=== PATIENT | male | born 1975 | race American Indian/Alaskan Native ===

== ENCOUNTER 2021-05-22 17:33 | Emergency (ER) | payer OTHER ==
[2021-05-22] MEDS ORDERED: methylPREDNISolone Sod Succinate 125 MG/2 ML INJ IV ONE (17:41)
[2021-05-22] MEDS ORDERED: diphenhydrAMINE 50 MG/ML VIAL IV ONE (17:42)
[2021-05-22] MEDS ORDERED: FAMOTIDINE 20 MG/2 ML INJ IV ONE (17:43)
[2021-05-22] MEDS ORDERED: methylPREDNISolone Sod Succinate 125 MG/2 ML INJ ONE (17:49)
--- NOTE | 2021-05-22 19:13 | Emergency Department Report ---
HPI - General Chief Complaint: Allergic Reaction PUI?: No Time Seen by Provider: 05/22/21 19:07 - [facility] HPI: 45-year-old male presents to the ED complaining of an allergic reaction at the touching face after eating seafood. 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 Patient states he is able to eat seafood without having any reaction. He stated that he had eaten the seafood x3 starting yesterday but once a day after eating he touched his face and noticed his eyes began to swell. He states this is his third reaction in the last 7-month. Patient has an EpiPen that he has not picked up from the pharmacy. He has edema noted to the face and ear area. No acute distress noted. Patient is alert and oriented x4. ED Past Medical Hx - Medications Home Medications: Home Medications Medication Instructions Recorded Confirmed Last Taken Type diphenhydrAMINE [Benadryl CAP] 50 mg PO Q8HR PRN 15 Days #30 05/22/21 Unknown Rx capsule predniSONE [Deltasone] 50 mg PO QDAY 3 Days #3 tab 05/22/21 Unknown Rx ED Review of Systems ROS: Stated complaint: ALLERGIC RXN Other details as noted in HPI ED Medical Decision Making - Medical Decision Making 45-year-old male presents to the ED complaining of an allergic reaction at the touching face after eating seafood. 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 Patient states he is able to eat seafood without having any reaction. He stated that he had eaten the seafood x3 starting yesterday but once a day after eating he touched his face and noticed his eyes began to swell. He states this is his third reaction in the last 7-month. Patient has an EpiPen that he has not picked up from the pharmacy. He has edema noted to the face and ear area. No acute distress noted. Patient is alert and oriented x4. Discussed plan of care with patient . Informed patient of the importance seafood allergy. Patient decreased edema noted to the face facial area and ear. Patient is alert and oriented x4 . No acute distress noted at time of discharge .patient was observed for 3 hour. Critical care attestation.: If time is entered above; I have spent that time in minutes in the direct care of this critically ill patient, excluding procedure time. ED Disposition Clinical Impression: Allergic reaction Qualifiers: Encounter type: initial encounter Qualified Code(s): T78.40XA - Allergy, unspecified, initial encounter Disposition: HOME / SELF CARE / HOMELESS Is pt being admited?: No Does the pt Need Aspirin: No Condition: Stable Instructions: Seafood Allergy, How to Use an Auto-Injector Pen Additional Instructions: Please case picker EpiPen from pharmacy Take prescription has prescribed Return to ED for any worsening symptoms Prescriptions: diphenhydrAMINE [Benadryl CAP] 50 mg PO Q8HR PRN 15 Days #30 capsule PRN Reason: Allergic Reaction predniSONE [Deltasone] 50 mg PO QDAY 3 Days #3 tab Referrals: PRIMARY CARE, [Primary Care Provider] - 3-5 Days Time of Disposition: 20:51
[2021-05-22 20:24] VITALS: BP 138/81
== END 2021-05-22 21:20 | disposition home or self-care (01) ==
LOC: ED 17:33
DX: T78.40XA Allergy, unspecified, initial encounter (principal); X58.XXXA Exposure to other specified factors, initial encounter; Y93.89 Activity, other specified; Y92.89 Other specified places as the place of occurrence of the external cause; Y99.8 Other external cause status
CPT/HCPCS: 96374; 96375; 99282; J2930